=== PATIENT | male | born 1980 | race Two or more races ===

== ENCOUNTER 2017-07-31 12:09 | Emergency (ER) | payer OTHER ==
[~2017-07-31] VITALS: Ht 165.1 cm; Wt 74.8 kg
[~2017-07-31 12:09] MED LIST: KEFLEX500 MG PO
== END 2017-07-31 13:50 | disposition home or self-care (01) ==
LOC: CFTX 12:09 → CED 12:09
DX: L50.1 Idiopathic urticaria (principal); J02.9 Acute pharyngitis, unspecified; F17.200 Nicotine dependence, unspecified, uncomplicated; Z79.2 Long term (current) use of antibiotics
CPT/HCPCS: 99282